=== PATIENT | female | born 1930 | race Hispanic/Latino ===

== ENCOUNTER 2017-09-16 08:13 | Day surgery (SDC) | payer MEDICARE ==
[2015-05-10 23:51] VITALS: PULSE 120
[2015-05-11 11:35] VITALS: BMI 35.3
[2017-09-16] MEDS ORDERED: Propofol 10 mg/ml Inj (20 ML) ONE (12:02)
[2017-09-16] MEDS ORDERED: Lidocaine Hydrochloride 5 ML INJ ONE (12:13)
[2017-09-16] MEDS ORDERED: Esmolol 100 mg/10ml Inj IV ONE (12:59)
[2017-09-16 13:37] VITALS: TEMP 98.5; O2SAT 100
[2017-09-16 14:11] VITALS: BP 112/68; PULSE 90; RESP 18
== END 2017-09-16 14:50 | disposition home or self-care (01) ==
LOC: C.ENDO 08:13
PROVIDERS: ATTEND Internal Medicine Gastroenterology
DX: D12.2 Benign neoplasm of ascending colon (principal); K64.1 Second degree hemorrhoids
CPT/HCPCS: 45380; 88305; 93005; J2704